=== PATIENT | male | born 1975 | race Two or more races ===

== ENCOUNTER 2020-04-09 08:28 | Emergency (ER) | payer SELFPAY ==
[~2020-04-09] VITALS: Ht 175.3 cm; Wt 119.5 kg
--- NOTE | 2020-04-09 09:00 | NUR ---
THIS IS A 44 YO M W/ C/O SOB, FATIGUE, FEVERS AND MUSCLE ACHES X1 WEEK. PT DENIES MEDICAL HX. CONNECTED TO MONITORING, VSS, NADN. PT RESTING ON GURNEY W/ CALL LIGHT IN REACH AND SIDE RAILS UPX2, FAMILY AT BEDSIDE. DENIES FURTHER NEEDS AT THIS TIME.
--- NOTE | 2020-04-09 09:20 | NUR ---
LAB IN ROOM.
[2020-04-09 09:47] LABS: ALANINE AMINOTRANSFERASE 154 U/L (12-78); ALBUMIN 4.1 g/dL (3.4-5.0); ANION GAP 6 mmol/L (5-15); C-REACTIVE PROTEIN, QUANT 0.72 mg/dL (0.02-0.49); CALCIUM 8.9 mg/dL (8.5-10.1); CHLORIDE 107 mmol/L (98-107); CREATININE 0.94 mg/dL (0.7-1.3)
[2020-04-09 09:48] LABS: BASOPHILS % (AUTO) 0 % (0-1); EOSINOPHILS # (AUTO) 0.01 x10^3/uL (0-0.4); EOSINOPHILS % (AUTO) 0 % (1-7); LYMPHOCYTES # (AUTO) 1.06 x10^3/uL (1-3.4); LYMPHOCYTES % (AUTO) 26 % (22-44); MD NO; MEAN CORPUSCULAR HEMOGLOBIN 29.7 pg (27.5-34.5); MEAN CORPUSCULAR HGB CONC 32.5 g/dL (33.2-36.2); MEAN CORPUSCULAR VOLUME 91.3 fL (81-97); MEAN PLATELET VOLUME 8.5 fL (7.4-10.4); MONOCYTES # (AUTO) 0.25 x10^3/uL (0.2-0.8); MONOCYTES % (AUTO) 6 % (2-9); NEUTROPHILS # (AUTO) 2.72 x10^3/uL (1.8-6.8); NEUTROPHILS % (AUTO) 67 % (42-75); PLATELET COUNT 203 x10^3/uL (130-400); RED BLOOD COUNT 5.52 x10^6/uL (4.38-5.82); RED CELL DISTRIBUTION WIDTH 13.7 % (9.4-14.8)
[2020-04-09 09:52] LABS: ALKALINE PHOSPHATASE 100 U/L (45-117); BILIRUBIN,TOTAL 0.4 mg/dL (0.2-1.0); TOTAL PROTEIN 8.8 g/dL (6.4-8.2)
[2020-04-09 10:33] LABS: D-DIMER (DIC) 0.47 ug/mlFEU (0.00-0.52)
[2020-04-09 11:07] VITALS: BP 159/106
== END 2020-04-09 11:40 | disposition home or self-care (01) ==
LOC: ED 09:38
DX: U07.1 COVID-19 (principal); J15.9 Unspecified bacterial pneumonia; R50.9 Fever, unspecified; R05 Cough; M79.10 Myalgia, unspecified site; R53.1 Weakness; I45.10 Unspecified right bundle-branch block; I44.4 Left anterior fascicular block
CPT/HCPCS: 36415; 71045; 80053; 82728; 83605; 83615; 84145; 85025; 85049; 85379; 85384; 85610; 85730; 86140; 87040; 87635; 93005; 99285